=== PATIENT | female | born 1975 | race Caucasian/White ===

== ENCOUNTER → 2018-01-13 | Outpatient (CLI) | payer OTHER ==
--- NOTE | 2018-01-13 14:44 | CT ---
EXAMINATION TYPE: CT chest w con DATE OF EXAM: 01/13/2018 COMPARISON: Outside chest x-ray report January 01, 2018 HISTORY: ABNORMAL FINDINGS ON PREVIOUS EXAM CT DLP: 827 mGycm. Automated Exposure Control for Dose Reduction was Utilized. TECHNIQUE: CT scan of the thorax is performed following with IV Contrast, patient injected with 100 mL of Isovue 300. FINDINGS: LUNGS: The lungs are grossly clear, there is no concerning parenchymal mass or nodule identified with particular attention to left suprahilar region at area of x-ray concern. There is no pleural effus ion or pneumothorax seen bilaterally. The tracheobronchial tree is patent. MEDIASTINUM: There are no greater than 1 cm hilar or mediastinal lymph nodes. No cardiomegaly or pe ricardial effusion is seen. Main pulmonary artery measures 2.6 cm in diameter. Adjacent ascending ao rta measures up to 3.8 cm diameter axial image 23. There is 4 vessel origin from aortic arch which is normal variant. OTHER: There is nonspecific heterogeneous 1.5 x 0.9 cm left adrenal nodule axial image 59. Visualized liver is hypodense suggesting fatty infiltration. Visualized spleen appears prominent coronal image 69. Slight scoliotic curvature centered in the upper thoracic spine is noted. IMPRESSION: 1. No suspicious nodules or masses. 2. 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 3. Nonspecific 1.5 x 0.9 cm left adrenal mass, adrenal protocol MRI can be performed to further evalu ate if desired.
== END ==
LOC: RADCTMAIN 13:27
PROVIDERS: ATTEND Family Medicine
DX: I71.2 Thoracic aortic aneurysm, without rupture (principal)
CPT/HCPCS: 71260; Q9967

== ENCOUNTER → 2018-01-21 | Outpatient (CLI) | payer OTHER ==
--- NOTE | 2018-01-21 14:29 | MM ---
Reason for exam: screening (asymptomatic). Baseline mammogram. History: Patient had first child at age 34. Family history of breast cancer in maternal grandmother at age 72. Taking hormonal contraceptives for 2 years. Physical Findings: Nurse did not find any significant physical abnormalities on exam. MG 3D Screening Mammo W/Cad Bilateral CC and MLO view(s) were taken. There are scattered fibroglandular densities. No suspicious calcifications are seen. There is no discrete abnormality. These results were verbally communicated with the patient and result sheet given to the patient on 01/21/18. ASSESSMENT: Negative, BI-RAD 1 RECOMMENDATION: Routine screening mammogram of both breasts in 1 year.
== END | disposition home or self-care (01) ==
LOC: RADMAMWWP 13:25
PROVIDERS: ATTEND Family Medicine
DX: Z12.31 Encounter for screening mammogram for malignant neoplasm of breast (principal); Z80.3 Family history of malignant neoplasm of breast
CPT/HCPCS: 77063; 77067

== ENCOUNTER → 2018-02-02 | Outpatient (CLI) | payer OTHER | LOC: RADMRIMAIN 18:19 | PROVIDERS: ATTEND Family Medicine | DX: Z53.9 Procedure and treatment not carried out, unspecified reason (principal) ==